=== PATIENT | female | born 1955 | race Caucasian/White ===

== ENCOUNTER 2024-08-01 11:10 | Day surgery (SDC) | payer MEDICARE, OTHER ==
[2024-08-01] MEDS ORDERED: AFRIN NASAL MIST 15 ML BOT ONE (11:53)
[2024-08-01] MEDS ORDERED: Famotidine/PF 20 mg/2ml Vial ONE (12:13)
[2024-08-01] MEDS ORDERED: Scopolamine 1 mg/72 hour Patch ONE (12:13)
[2024-08-01 12:16] LABS: Hematocrit 37.6 % (34.9-44.5); Hemoglobin 12.4 g/dL (12.0-15.5)
[2024-08-01 12:30] LABS: Anion Gap 10 mmol/L (10-20); BUN (Urea Nitrogen) 15 mg/dL (9.8-20.1); Calc. Creatinine Clearance 92 mL/min (70-130); Calcium 8.9 mg/dL (7.8-10.44); Carbon Dioxide 24 mmol/L (23-31); Chloride 109 mmol/L (98-107); Estimated GFR 90; Glucose 95 mg/dL (80-115); Potassium 3.8 mmol/L (3.5-5.1); Sodium 139 mmol/L (136-145)
[2024-08-01] MEDS ORDERED: SUGAMMADEX SODIUM 200 MG/2 ML VIAL ONE (12:30)
[2024-08-01] MEDS ORDERED: EPINEPHrine 1 MG/ML VIAL ONE (13:15)
[2024-08-01] MEDS ORDERED: Lidocaine 1% w/Epinephrine 1:200K 30 ML VIAL ONE (13:16)
[2024-08-01] MEDS ORDERED: Mupirocin 2% Ointment 22 GM Tube ONE (13:16)
[2024-08-01] MEDS ORDERED: Propofol 1,000 MG/100 ML VIAL IV ONE (13:32)
[2024-08-01] MEDS ORDERED: Oxymetazoline HCl 0.05% ( 15 ML ) ONE (15:07)
[2024-08-01] MEDS ORDERED: Bacitracin 1 PK ONE (15:07)
[2024-08-01] MEDS ORDERED: fentaNYL 50 mcg/mL 1 mL Vial ONE ×2 (15:20→15:38)
[2024-08-01] MEDS ORDERED: Hydrocodone-Acetamin 15 ML UDCUP ONE (16:07)
== END 2024-08-01 16:50 | disposition home or self-care (01) ==
LOC: CSHSDC 11:10
PROVIDERS: ATTEND Specialist
PROC: 09BM8ZZ Excision of Nasal Septum, Via Natural or Artificial Opening Endoscopic (ICD-10-PCS; principal; 2024-08-01)
PROC: 09TL8ZZ Resection of Nasal Turbinate, Via Natural or Artificial Opening Endoscopic (ICD-10-PCS; 2024-08-01)
DX: J34.2 Deviated nasal septum (principal); J34.3 Hypertrophy of nasal turbinates; J35.1 Hypertrophy of tonsils; J34.89 Other specified disorders of nose and nasal sinuses; E03.9 Hypothyroidism, unspecified; G47.33 Obstructive sleep apnea (adult) (pediatric); K58.9 Irritable bowel syndrome, unspecified; K22.70 Barrett's esophagus without dysplasia; M06.9 Rheumatoid arthritis, unspecified; M19.90 Unspecified osteoarthritis, unspecified site; K21.9 Gastro-esophageal reflux disease without esophagitis; Z79.899 Other long term (current) drug therapy; Z90.89 Acquired absence of other organs; Z79.890 Hormone replacement therapy; Z88.0 Allergy status to penicillin; Z87.891 Personal history of nicotine dependence; Z98.1 Arthrodesis status; Z98.51 Tubal ligation status; Z98.41 Cataract extraction status, right eye; Z98.42 Cataract extraction status, left eye; Z90.49 Acquired absence of other specified parts of digestive tract
CPT/HCPCS: 30140; 30520; 80048; 85014; 85018; 93005; J2704; J3010; J3490; 93010; J0171